=== PATIENT | female | born 1970 | race Caucasian/White ===

== ENCOUNTER 2020-08-13 13:37 | Emergency (ER) | payer BC ==
[~2020-08-13] VITALS: Wt 70.3 kg
[~2020-08-13 13:37] MED LIST: 'zithromax250 MG PO; ATARAX10 MG PO; CIPRO500 MG PO; DOXYCYCLINE MO100 MG PO; EES400 MG PO; FIORICET 325 MG1 TAB PO; PREDNICOT20 MG PO; TOPICORT0.25%; TORADOL10 MG PO
[2020-08-13 13:53] VITALS: BP 128/84
[2020-08-13 14:40] LABS: BASO # 0.1 10*3/uL (0.0-0.1); BASO % 0.9 % (0.0-1.0); EOS # 0.1 10*3/uL (0.0-0.4); EOS % 1.5 % (1.0-4.0); HEMATOCRIT 35.7 % (37.0-47.0); LYMPH # 2.4 10*3/uL (1.3-4.4); LYMPH % 30.2 % (27.0-41.0); MEAN CELL VOLUME 85.6 fl (81.0-99.0); MEAN CORPUSCULAR HGB 28.8 pg (27.0-31.0); MEAN CORPUSCULAR HGB CONC 33.6 g/dl (33.0-37.0); MEAN PLATELET VOLUME 8.7 fl (9.6-12.3); MONO # 0.7 10*3/uL (0.1-1.0); MONO % 8.6 % (3.0-9.0); NEUT # 4.7 10*3/uL (2.3-7.9); NEUT % 58.6 % (47.0-73.0); PLATELET COUNT AUTOMATED 394 10*3/uL (130-400); RED BLOOD COUNT 4.17 10*6/uL (4.10-5.10); RED CELL DISTRI WIDTH 11.6 % (0-14.5); WHITE BLOOD COUNT 8.1 10*3/uL (4.8-10.8)
[2020-08-13 14:53] LABS: ACT PARTIAL THROMBO TIME 28.8 SECONDS (20.0-32.1)
[2020-08-13 15:00] LABS: ALBUMIN 4.2 gm/dl (3.1-4.5); ALKALINE PHOSPHATASE 60 U/L (45-117); BUN 19 mg/dl (7-24); CHLORIDE 105 mmol/L (98-107); CREATININE 0.67 mg/dL (0.55-1.02); LIPASE 81 U/L (73-393); SGOT/AST 9 IU/L (3-35); SGPT/ALT 23 U/L (12-78); SODIUM 137 mmol/L (136-145); TOTAL PROTEIN 7.8 gm/dL (6.4-8.2)
[2020-08-13 15:04] LABS: TROPONIN I < 0.015 ng/ml (<0.045)
[2020-08-13] MEDS ORDERED: PREDNISONE20 M1 PO (18:01)
== END 2020-08-13 18:04 | disposition home or self-care (01) ==
LOC: ED 13:37
PROVIDERS: Emergency Medicine
DX: G51.0 Bell's palsy (principal); R79.1 Abnormal coagulation profile; Z88.0 Allergy status to penicillin; Z88.1 Allergy status to other antibiotic agents; Z88.2 Allergy status to sulfonamides; Z79.899 Other long term (current) drug therapy

== ENCOUNTER → 2020-10-03 | Outpatient (CLI) | payer BC ==
[~2020-10-03] MED LIST changes: +PREDNISONE20 M1 PO
[2020-10-03 13:51] LABS: IRON 58 ug/dL (50-170); TOTAL IRON BINDING CAPACITY 330 ug/dl (250-450)
== END | disposition home or self-care (01) ==
LOC: LAB 13:10
PROVIDERS: ATTEND Nurse Practitioner Family
DX: L65.9 Nonscarring hair loss, unspecified (principal)

== ENCOUNTER → 2020-11-07 | Outpatient (CLI) | payer BC | END | disposition home or self-care (01) | LOC: D 13:57 | PROVIDERS: ATTEND Nurse Practitioner Family | DX: E55.9 Vitamin D deficiency, unspecified (principal); E78.5 Hyperlipidemia, unspecified; R53.83 Other fatigue ==

== ENCOUNTER → 2021-05-02 | Outpatient (CLI) | payer BC | END | disposition home or self-care (01) | LOC: COVID19 15:30 | PROVIDERS: ATTEND Internal Medicine | DX: Z11.52 Encounter for screening for COVID-19 (principal) ==

== ENCOUNTER → 2021-06-20 | Outpatient (CLI) | payer BC ==
[2021-06-20 08:54] LABS: BASO # 0.1 10*3/uL (0.0-0.1); BASO % 1.3 % (0.0-1.0); EOS # 0.1 10*3/uL (0.0-0.4); HEMATOCRIT 35.7 % (37.0-47.0); LYMPH # 1.5 10*3/uL (1.3-4.4); LYMPH % 31.9 % (27.0-41.0); MEAN CELL VOLUME 87.9 fl (81.0-99.0); MEAN CORPUSCULAR HGB 29.6 pg (27.0-31.0); MEAN CORPUSCULAR HGB CONC 33.6 g/dl (33.0-37.0); MEAN PLATELET VOLUME 8.7 fl (9.6-12.3); MONO # 0.5 10*3/uL (0.1-1.0); MONO % 9.9 % (3.0-9.0); NEUT # 2.6 10*3/uL (2.3-7.9); NEUT % 53.7 % (47.0-73.0); PLATELET COUNT AUTOMATED 426 10*3/uL (130-400); RED BLOOD COUNT 4.06 10*6/uL (4.10-5.10); RED CELL DISTRI WIDTH 11.7 % (0-14.5); WHITE BLOOD COUNT 4.7 10*3/uL (4.8-10.8)
[2021-06-20 09:16] LABS: ALBUMIN 3.9 gm/dl (3.1-4.5); BUN 19 mg/dl (7-24); CHLORIDE 110 mmol/L (98-107); CHOLESTEROL 160 mg/dL (<200); CREATININE 0.63 mg/dL (0.55-1.02); LDL CHOLESTEROL 95 mg/dL (9-159); POTASSIUM 4.2 mmol/L (3.5-5.1); SGOT/AST 12 IU/L (3-35); SGPT/ALT 29 U/L (12-78); SODIUM 140 mmol/L (136-145); TOTAL PROTEIN 7.3 gm/dL (6.4-8.2); TRIGLYCERIDES 103 mg/dl (<150); URIC ACID 3.7 mg/dL (2.6-6.0)
[2021-06-20 09:17] LABS: ALKALINE PHOSPHATASE 57 U/L (45-117)
== END | disposition home or self-care (01) ==
LOC: LAB 08:19
PROVIDERS: ATTEND Nurse Practitioner Family
DX: M54.16 Radiculopathy, lumbar region (principal); M25.50 Pain in unspecified joint; E78.5 Hyperlipidemia, unspecified

== ENCOUNTER → 2022-08-04 | Outpatient (CLI) | payer BC ==
[~2022-08-04] MED LIST changes: +B12 ACTIVE1000 MCG PO; +COLACE100 MG PO; +HYDROCODONE-AC1 EAC1 PO; +METRONIDAZOLE500 M1 PO; +ROSUVASTATIN CA10 MG PO; +VITAMIN D350 MC2 PO
[2022-08-04 09:35] LABS: BASO # 0.1 10*3/uL (0.0-0.1); BASO % 1.1 % (0.0-1.0); EOS # 0.2 10*3/uL (0.0-0.4); EOS % 3.8 % (1.0-4.0); HEMATOCRIT 39.3 % (37.0-47.0); LYMPH # 1.7 10*3/uL (1.3-4.4); LYMPH % 27.3 % (27.0-41.0); MEAN CORPUSCULAR HGB 29.1 pg (27.0-31.0); MEAN CORPUSCULAR HGB CONC 33.8 g/dl (33.0-37.0); MEAN PLATELET VOLUME 8.7 fl (9.6-12.3); MONO # 0.6 10*3/uL (0.1-1.0); NEUT # 3.6 10*3/uL (2.3-7.9); NEUT % 57.3 % (47.0-73.0); PLATELET COUNT AUTOMATED 448 10*3/uL (130-400); RED BLOOD COUNT 4.57 10*6/uL (4.10-5.10); WHITE BLOOD COUNT 6.3 10*3/uL (4.8-10.8)
[2022-08-04 10:04] LABS: ALKALINE PHOSPHATASE 61 U/L (46-116); BUN 16 mg/dl (9-23); CHLORIDE 105 mmol/L (98-107); CHOLESTEROL 128 mg/dL (<200); LDL CHOLESTEROL 68 mg/dL (9-159); POTASSIUM 4.3 mmol/L (3.4-5.1); SGPT/ALT 16 U/L (10-49); THYROID STIM HORMONE (HS) 1.059 uIU/ml (0.550-4.780); TOTAL PROTEIN 7.1 gm/dL (6.0-8.0); TRIGLYCERIDES 93 mg/dl (<150)
== END | disposition home or self-care (01) ==
LOC: LAB 08:52
PROVIDERS: ATTEND Nurse Practitioner Family
DX: E55.9 Vitamin D deficiency, unspecified (principal); E78.5 Hyperlipidemia, unspecified; Z12.31 Encounter for screening mammogram for malignant neoplasm of breast

== ENCOUNTER 2023-03-17 10:00 | Emergency (ER) | payer BC ==
[~2023-03-17] VITALS: Ht 157.4 cm; Wt 74.4 kg
[2023-03-17 10:15] VITALS: BP 132/78
[2023-03-17] MEDS ORDERED: PREDNISONE50 MG PO (11:55)
== END 2023-03-17 12:06 | disposition home or self-care (01) ==
LOC: ED 10:00
DX: M54.41 Lumbago with sciatica, right side (principal); M79.604 Pain in right leg; Z88.2 Allergy status to sulfonamides; Z88.1 Allergy status to other antibiotic agents; Z88.0 Allergy status to penicillin; Z90.49 Acquired absence of other specified parts of digestive tract; Z90.710 Acquired absence of both cervix and uterus; Z87.891 Personal history of nicotine dependence

== ENCOUNTER → 2023-05-07 | Outpatient (CLI) | payer BC ==
[~2023-05-07] MED LIST changes: +PREDNISONE50 MG PO
[2023-05-07 08:52] LABS: BASO # 0.1 10*3/uL (0.0-0.1); EOS # 0.2 10*3/uL (0.0-0.4); EOS % 2.2 % (1.0-4.0); HEMATOCRIT 38.7 % (37.0-47.0); LYMPH # 1.6 10*3/uL (1.3-4.4); LYMPH % 23.9 % (27.0-41.0); MEAN CELL VOLUME 86.2 fl (81.0-99.0); MEAN CORPUSCULAR HGB 29.4 pg (27.0-31.0); MEAN CORPUSCULAR HGB CONC 34.1 g/dl (33.0-37.0); MEAN PLATELET VOLUME 8.5 fl (9.6-12.3); MONO # 0.6 10*3/uL (0.1-1.0); MONO % 8.9 % (3.0-9.0); NEUT # 4.3 10*3/uL (2.3-7.9); NEUT % 63.6 % (47.0-73.0); PLATELET COUNT AUTOMATED 365 10*3/uL (130-400); RED BLOOD COUNT 4.49 10*6/uL (4.10-5.10); RED CELL DISTRI WIDTH 11.9 % (0-14.5); WHITE BLOOD COUNT 6.8 10*3/uL (4.8-10.8)
[2023-05-07 09:25] LABS: ALKALINE PHOSPHATASE 69 U/L (46-116); BUN 12 mg/dl (9-23); CHLORIDE 107 mmol/L (98-107); CHOLESTEROL 166 mg/dL (<200); LDL CHOLESTEROL 78 mg/dL (9-159); POTASSIUM 4.2 mmol/L (3.4-5.1); SGPT/ALT 20 U/L (10-49); TOTAL PROTEIN 7.2 gm/dL (6.0-8.0); TRIGLYCERIDES 183 mg/dl (<150)
== END | disposition home or self-care (01) ==
LOC: LAB 00:37 → MRI 00:37
PROVIDERS: ATTEND Nurse Practitioner Family
DX: M47.26 Other spondylosis with radiculopathy, lumbar region (principal); M48.061 Spinal stenosis, lumbar region without neurogenic claudication; M51.27 Other intervertebral disc displacement, lumbosacral region; E78.5 Hyperlipidemia, unspecified; E55.9 Vitamin D deficiency, unspecified

== ENCOUNTER → 2023-12-04 | Outpatient (CLI) | payer BC, OTHER ==
[2023-12-04 09:35] LABS: BASO # 0.1 10*3/uL (0.0-0.1); EOS # 0.1 10*3/uL (0.0-0.4); EOS % 2.3 % (1.0-4.0); HEMATOCRIT 37.4 % (37.0-47.0); LYMPH # 1.8 10*3/uL (1.3-4.4); LYMPH % 35.1 % (27.0-41.0); MEAN CELL VOLUME 86.8 fl (81.0-99.0); MEAN CORPUSCULAR HGB 29.2 pg (27.0-31.0); MEAN CORPUSCULAR HGB CONC 33.7 g/dl (33.0-37.0); MEAN PLATELET VOLUME 8.7 fl (9.6-12.3); MONO # 0.6 10*3/uL (0.1-1.0); MONO % 11.7 % (3.0-9.0); NEUT # 2.6 10*3/uL (2.3-7.9); NEUT % 49.7 % (47.0-73.0); PLATELET COUNT AUTOMATED 403 10*3/uL (130-400); RED BLOOD COUNT 4.31 10*6/uL (4.10-5.10); RED CELL DISTRI WIDTH 12.2 % (0-14.5); WHITE BLOOD COUNT 5.1 10*3/uL (4.8-10.8)
[2023-12-04 10:04] LABS: ALKALINE PHOSPHATASE 64 U/L (46-116); BUN 12 mg/dl (9-23); CHLORIDE 104 mmol/L (98-107); CHOLESTEROL 194 mg/dL (<200); LDL CHOLESTEROL 115 mg/dL (9-159); SGPT/ALT 42 U/L (5-49); TOTAL PROTEIN 7.1 gm/dL (6.0-8.0); TRIGLYCERIDES 205 mg/dl (<150)
== END ==
LOC: LAB 08:34
PROVIDERS: ATTEND Nurse Practitioner Family
DX: E78.5 Hyperlipidemia, unspecified (principal); L65.9 Nonscarring hair loss, unspecified; E55.9 Vitamin D deficiency, unspecified; R53.83 Other fatigue

== ENCOUNTER → 2023-12-16 | Outpatient (CLI) | payer BC, OTHER | END | disposition home or self-care (01) | LOC: MAMMO 13:26 | PROVIDERS: ATTEND Nurse Practitioner Family | DX: Z12.31 Encounter for screening mammogram for malignant neoplasm of breast (principal); N63.12 Unspecified lump in the right breast, upper inner quadrant; N64.89 Other specified disorders of breast ==

== ENCOUNTER → 2024-01-13 | Outpatient (CLI) | payer BC, OTHER | END | disposition home or self-care (01) | LOC: MAMMO 13:07 | PROVIDERS: ATTEND Nurse Practitioner Family | DX: N63.14 Unspecified lump in the right breast, lower inner quadrant (principal); N60.01 Solitary cyst of right breast ==

== ENCOUNTER → 2024-03-18 | Outpatient (CLI) | payer BC, OTHER ==
[2024-03-18 08:45] LABS: ALKALINE PHOSPHATASE 70 U/L (46-116); BUN 14 mg/dl (9-23); CHLORIDE 103 mmol/L (98-107); CHOLESTEROL 225 mg/dL (<200); LDL CHOLESTEROL 160 mg/dL (9-159); POTASSIUM 4.3 mmol/L (3.4-5.1); SGPT/ALT 32 U/L (5-49); TOTAL PROTEIN 7.8 gm/dL (6.0-8.0); TRIGLYCERIDES 97 mg/dl (<150)
[2024-03-18 09:38] LABS: VITAMIN D, 25-HYDROXY 32.3 ng/mL (30-100)
== END | disposition home or self-care (01) ==
LOC: LAB 07:58
PROVIDERS: ATTEND Internal Medicine
DX: E34.9 Endocrine disorder, unspecified (principal)

== ENCOUNTER → 2024-05-13 | Outpatient (CLI) | payer BC, OTHER ==
[2024-05-13 09:48] LABS: BASO % 0.3 % (0.0-1.0); HEMATOCRIT 35.2 % (37.0-47.0); LYMPH # 1.1 10*3/uL (1.3-4.4); LYMPH % 14.1 % (27.0-41.0); MEAN CELL VOLUME 87.1 fl (81.0-99.0); MEAN CORPUSCULAR HGB 29.5 pg (27.0-31.0); MEAN CORPUSCULAR HGB CONC 33.8 g/dl (33.0-37.0); MEAN PLATELET VOLUME 8.8 fl (9.6-12.3); MONO # 0.6 10*3/uL (0.1-1.0); MONO % 7.5 % (3.0-9.0); NEUT % 77.3 % (47.0-73.0); PLATELET COUNT AUTOMATED 440 10*3/uL (130-400); RED BLOOD COUNT 4.04 10*6/uL (4.10-5.10); RED CELL DISTRI WIDTH 12.3 % (0-14.5); WHITE BLOOD COUNT 7.8 10*3/uL (4.8-10.8)
[2024-05-13 10:28] LABS: ALKALINE PHOSPHATASE 58 U/L (46-116); BUN 19 mg/dl (9-23); CHLORIDE 106 mmol/L (98-107); CHOLESTEROL 200 mg/dL (<200); LDL CHOLESTEROL 118 mg/dL (9-159); POTASSIUM 3.7 mmol/L (3.4-5.1); SGPT/ALT 24 U/L (5-49); TOTAL PROTEIN 6.6 gm/dL (6.0-8.0); TRIGLYCERIDES 182 mg/dl (<150)
== END | disposition home or self-care (01) ==
LOC: LAB 09:12
PROVIDERS: ATTEND Nurse Practitioner Family
DX: Z12.31 Encounter for screening mammogram for malignant neoplasm of breast (principal); L65.9 Nonscarring hair loss, unspecified

== ENCOUNTER → 2024-08-05 | Outpatient (CLI) | payer BC ==
[2024-08-05 09:31] LABS: ALKALINE PHOSPHATASE 58 U/L (46-116); BUN 25 mg/dl (9-23); CHLORIDE 106 mmol/L (98-107); CHOLESTEROL 176 mg/dL (<200); LDL CHOLESTEROL 112 mg/dL (9-159); POTASSIUM 3.9 mmol/L (3.4-5.1); SGPT/ALT 24 U/L (5-49); TOTAL PROTEIN 6.9 gm/dL (6.0-8.0); TRIGLYCERIDES 92 mg/dl (<150)
[2024-08-06 04:06] LABS: DHEA SULFATE 99.5 ug/dL (41.2-243.7)
== END | disposition home or self-care (01) ==
LOC: LAB 08:38
PROVIDERS: ATTEND Internal Medicine
DX: E55.9 Vitamin D deficiency, unspecified (principal); E34.9 Endocrine disorder, unspecified; E78.5 Hyperlipidemia, unspecified; L65.9 Nonscarring hair loss, unspecified

== ENCOUNTER → 2024-12-20 | Outpatient (CLI) | payer BC ==
[2024-12-20 11:16] LABS: ALKALINE PHOSPHATASE 70 U/L (46-116); BUN 15 mg/dl (9-23); CHLORIDE 101 mmol/L (98-107); CHOLESTEROL 204 mg/dL (<200); LDL CHOLESTEROL 119 mg/dL (9-159); POTASSIUM 4.1 mmol/L (3.4-5.1); SGPT/ALT 21 U/L (5-49); TOTAL PROTEIN 7.3 gm/dL (6.0-8.0); TRIGLYCERIDES 211 mg/dl (<150)
== END | disposition home or self-care (01) ==
LOC: LAB 09:35
PROVIDERS: ATTEND Internal Medicine
DX: E78.5 Hyperlipidemia, unspecified (principal); E34.9 Endocrine disorder, unspecified; E55.9 Vitamin D deficiency, unspecified; R73.9 Hyperglycemia, unspecified

== ENCOUNTER → 2025-02-03 | Outpatient (CLI) | payer BC ==
[2025-02-03 18:08] LABS: BASO # 0.1 10*3/uL (0.0-0.1); BASO % 1.4 % (0.0-1.0); EOS # 0.2 10*3/uL (0.0-0.4); EOS % 2.5 % (1.0-4.0); MEAN CELL VOLUME 88.8 fl (81.0-99.0); MEAN CORPUSCULAR HGB 29.4 pg (27.0-31.0); MEAN PLATELET VOLUME 9.1 fl (9.6-12.3); MONO # 0.6 10*3/uL (0.1-1.0); MONO % 9.7 % (3.0-9.0); NEUT # 3.7 10*3/uL (2.3-7.9); NEUT % 56.6 % (47.0-73.0); NUCLEATED RED BLOOD CELL 0.0 % (0.0-0.0); NUCLEATED RED BLOOD CELL 0.0 10*3/uL (0.0-0.0); PLATELET COUNT AUTOMATED 470 10*3/uL (130-400); RED CELL DISTRI WIDTH 12.4 % (0-14.5)
[2025-02-03 18:28] LABS: BUN 19 mg/dl (9-23); LDL CHOLESTEROL 94 mg/dL (9-159); SGPT/ALT 55 U/L (5-49)
== END | disposition home or self-care (01) ==
LOC: LAB 11:44
PROVIDERS: ATTEND Nurse Practitioner Family
DX: R10.9 Unspecified abdominal pain (principal); R19.7 Diarrhea, unspecified; R53.83 Other fatigue

== ENCOUNTER → 2025-02-20 | Outpatient (CLI) | payer BC | END | disposition home or self-care (01) | LOC: LAB 08:59 | PROVIDERS: ATTEND Nurse Practitioner Family | DX: R19.7 Diarrhea, unspecified (principal); R10.9 Unspecified abdominal pain ==

== ENCOUNTER → 2025-04-17 | Outpatient (CLI) | payer BC | END | disposition home or self-care (01) | LOC: MAMMO 09:53 | PROVIDERS: ATTEND Nurse Practitioner Family | DX: Z12.31 Encounter for screening mammogram for malignant neoplasm of breast (principal) ==

== ENCOUNTER → 2025-05-10 | Outpatient (CLI) | payer BC ==
[2025-05-10 10:20] LABS: BUN 15 mg/dl (9-23); FREE T4 1.21 ng/dl (0.89-1.76); LDL CHOLESTEROL 162 mg/dL (9-159); SGPT/ALT 18 U/L (5-49)
[2025-05-11 04:06] LABS: DHEA SULFATE 60.0 ug/dL (41.2-243.7)
== END | disposition home or self-care (01) ==
LOC: LAB 08:48
PROVIDERS: ATTEND Internal Medicine
DX: E78.5 Hyperlipidemia, unspecified (principal); E34.9 Endocrine disorder, unspecified; E55.9 Vitamin D deficiency, unspecified; R78.0 Finding of alcohol in blood